=== PATIENT | male | born 1960 | race Caucasian/White ===

== ENCOUNTER 2017-09-12 14:53 | Emergency (ER) | payer SELFPAY ==
[~2017-09-12] VITALS: Ht 177.8 cm; Wt 140.0 kg
[2017-09-12 16:22] LABS: INR 1.3; PROTHROMBIN TIME 13.5 sec (9.4-11.6)
[2017-09-12 16:23] LABS: BASOPHILS % 0.5 % (0.0-2.0); CHLORIDE 106 mEq/L (98-107); EOSINOPHILS % 1.9 % (0.0-5.0); HEMATOCRIT. 46.4 % (42.0-52.0); HEMOGLOBIN. 16.3 g/dL (14.0-18.0); LYMPHOCYTES % 43.7 % (20.0-50.0); MEAN CORPUSCULAR HEMOGLOBIN 32.1 pg (28.0-32.0); MEAN CORPUSCULAR VOLUME 91.3 fL (80.0-94.0); MEAN PLATELET VOLUME 8.1 fl (7.4-10.4); MONOCYTES % 9.7 % (2.0-8.0); NEUTROPHILS % 44.2 % (40.0-76.0); PLATELET 192 x1000/uL (130-400); RED BLOOD CELL COUNT 5.09 mill/uL (4.7-6.1); RED CELL DISTRIBUTION WIDTH 17.2 % (11.6-14.6)
[2017-09-12 16:33] LABS: ETHANOL BLOOD 290 mg/dL
[2017-09-12 16:40] VITALS: BP 139/86
[2017-09-12 17:02] LABS: *BENZODIAZEPINES SCREEN URINE NEGATIVE (NEGATIVE); *COCAINE SCREEN URINE NEGATIVE (NEGATIVE)
[2017-09-12 17:03] LABS: CANNABINOID URINE SCREEN NEGATIVE (NEGATIVE); METHADONE URINE SCREEN NEGATIVE (NEGATIVE); OPIATES URINE SCREEN PRESUMTIVE POSITIVE (NEGATIVE); PHENCYCLIDINE URINE SCREEN NEGATIVE (NEGATIVE)
[2017-09-12 17:04] LABS: *AMPHETAMINES SCREEN URINE NEGATIVE (NEGATIVE); *BARBITURATES SCREEN URINE NEGATIVE (NEGATIVE)
== END 2017-09-12 17:43 | disposition home or self-care (01) ==
LOC: ER 15:23
DX: G92 Toxic encephalopathy (principal); R73.9 Hyperglycemia, unspecified; E86.0 Dehydration; F10.129 Alcohol abuse with intoxication, unspecified; Y90.8 Blood alcohol level of 240 mg/100 ml or more; F11.10 Opioid abuse, uncomplicated; D72.821 Monocytosis (symptomatic); I48.91 Unspecified atrial fibrillation; D64.9 Anemia, unspecified; R79.89 Other specified abnormal findings of blood chemistry; E66.9 Obesity, unspecified; Z68.41 Body mass index [BMI] 40.0-44.9, adult; Z96.641 Presence of right artificial hip joint
CPT/HCPCS: 36415; 80053; 80305; 85025; 85610; 99284; G0482